=== PATIENT | male | born 1985 | race Two or more races ===

== ENCOUNTER 2023-04-08 17:40 | Inpatient (IN) | payer OTHER ==
[~2023-04-08] VITALS: Ht 182.9 cm; Wt 93.3 kg
[2023-04-08] MEDS ORDERED: NAP500T PO (21:45)
[2023-04-08] MEDS ORDERED: DULO60CA41 PO (21:59)
[2023-04-08 22:00] VITALS: BP 156/114; PULSE 78; RESP 20; TEMP 96.7; O2SAT 97
[2023-04-08] MEDS ORDERED: MORPHINE SULFATE INJ 2 MG/ml SYRG IV PRN ×2 (23:00→23:30)
[2023-04-08] MEDS ORDERED: ONDANSETRON HCL 4 MG/2 ML VIAL IV PRN (23:00)
[2023-04-08] MEDS ORDERED: IBUPROFEN 600 MG TAB PO PRN (23:30)
[2023-04-08] MEDS ORDERED: SODIUM CHLORIDE 0.9% 1,000 ML IV SCH (23:30)
[2023-04-08] MEDS ORDERED: NITROGLYCERIN 0.4 MG SL TAB SL PRN (23:30)
[2023-04-09] VITALS (7 sets, daily range): BP systolic 127–161; BP diastolic 94–110; PULSE 91–110; RESP 17–21; TEMP 98–98.5; O2SAT 92–98
[2023-04-09 01:19] LABS: Basophils # (auto) 0 10 ^3/uL (0-0.2); Eosinophils # (auto) 0 10 ^3/uL (0-0.8); Lymphocytes # (auto) 0.5 10 ^3/uL (0.4-5.4)
[2023-04-09 01:21] LABS: Basophils % (auto) 0.1 % (0.0-2.0); Lymphocytes % (auto) 2.1 % (10.0-50.0); Mean Corpuscular Hemoglobin 32.3 pg (28.0-32.0); Mean Corpuscular Volume 95.1 fL (80.0-100.0); Monocytes # (auto) 1.1 10 ^3/uL (0-1.3); Monocytes % (auto) 5.1 % (0.0-12.0); Neutrophils % (auto) 92.7 % (37.0-80.0); Nucleated Red Blood Cells % 0.1 %; Red Blood Cells 5.58 10^6/uL (4.5-5.90); Red Cell Distribution Width 14.1 % (11.8-14.3); White Blood Cell 21.5 10^3/uL (4.4-10.8)
[2023-04-09 01:22] LABS: Alanine Aminotransferase 96 U/L (7-40); Alkaline Phosphatase 70 U/L (46-116); Anion Gap 13 (5-15); Calcium 8.8 mg/dL (8.7-10.4); Carbon Dioxide 24 mmol/L (20-30); Chloride 96 mmol/L (98-107); Glucose 190 mg/dL (74-106); Lipase 573 U/L (12-53); Potassium 3.8 mmol/L (3.5-5.1); Sodium 133 mmol/L (136-145)
[2023-04-09 01:23] LABS: Albumin 4.7 g/dL (3.2-4.8); Aspartate Aminotransferase 118 U/L (13-40); BUN/Creatinine Ratio 11.2 (10.0-20.0); Bilirubin, Total 1.7 mg/dL (0.2-1.0); Blood Urea Nitrogen 10 mg/dL (9-23); Total Protein 7.5 g/dL (5.7-8.2)
[2023-04-09] MEDS ORDERED: cefTRIAXone 1GM/50ML D5W 50 ML IV ONE (02:15)
[2023-04-09 02:43] LABS: Lactic Acid w/Reflex 2.8 mmol/L (0.4-2.0)
[2023-04-09] MEDS: HYDROmorphone HCL 2 MG/ML VL/or syr IV PRN ×6 (03:08→21:07)
[2023-04-09] MEDS ORDERED: metroNIDAZOLE 500MG/100ML 100 ML IV SCH (06:00)
[2023-04-09 06:03] LABS: Basophils # (auto) 0 10 ^3/uL (0-0.2); Basophils % (auto) 0.1 % (0.0-2.0); Eosinophils # (auto) 0 10 ^3/uL (0-0.8); Hematocrit 50.2 % (41.0-53.0); Hemoglobin 17.3 g/dL (13.5-17.5); Lymphocytes # (auto) 0.7 10 ^3/uL (0.4-5.4); Lymphocytes % (auto) 3.4 % (10.0-50.0); Mean Corpuscular Hemoglobin 32.5 pg (28.0-32.0); Mean Corpuscular Hgb Conc. 34.5 g/dL (32.0-36.0); Mean Corpuscular Volume 94.4 fL (80.0-100.0); Monocytes # (auto) 1.3 10 ^3/uL (0-1.3); Neutrophils # (auto) 18.8 10 ^3/uL (1.6-8.6); Neutrophils % (auto) 90.5 % (37.0-80.0); Nucleated Red Blood Cells % 0.1 %; Red Blood Cells 5.32 10^6/uL (4.5-5.90); Red Cell Distribution Width 14.2 % (11.8-14.3); White Blood Cell 20.8 10^3/uL (4.4-10.8)
[2023-04-09 06:18] LABS: Alanine Aminotransferase 91 U/L (7-40); Albumin 4.7 g/dL (3.2-4.8); Alkaline Phosphatase 70 U/L (46-116); Anion Gap 11 (5-15); Aspartate Aminotransferase 97 U/L (13-40); BUN/Creatinine Ratio 11.4 (10.0-20.0); Blood Urea Nitrogen 9 mg/dL (9-23); Calcium 9.2 mg/dL (8.5-10.1); Carbon Dioxide 25 mmol/L (20-30); Chloride 97 mmol/L (98-107); Glucose 184 mg/dL (74-106); Sodium 133 mmol/L (136-145)
[2023-04-09 06:19] LABS: Bilirubin, Total 1.1 mg/dL (0.2-1.0); Total Protein 7.3 g/dL (5.7-8.2)
[2023-04-09] MEDS ORDERED: cefTRIAXone 1GM/50ML D5W 50 ML IV SCH (09:00)
[2023-04-09] MEDS ORDERED: LACTATED RINGER'S 1,000 ML IV SCH (09:15)
[2023-04-09] MEDS: ONDANSETRON HCL 4 MG/2 ML VIAL IV PRN ×3 (09:58→18:36)
[2023-04-09 10:33] LABS: INR 1.06 (0.9-1.15); Partial Thromboplastin Time 28.3 SEC (24.5-34.5); Prothrombin Time 11.1 sec (9.3-11.8)
[2023-04-09 10:35] LABS: Triglycerides 109 mg/dL (< 150)
[2023-04-09 10:36] LABS: LDL Cholesterol 112 mg/dL (< 100)
[2023-04-09 10:37] LABS: Cholesterol 197 mg/dL (< 200); HDL Cholesterol 58 mg/dL (40-59)
[2023-04-09 10:50] LABS: Magnesium 1.7 mg/dL (1.6-2.6)
[2023-04-09 11:14] LABS: Amylase 159 U/L (30-118); Blood Alcohol < 3.0 mg/dL (<10)
[2023-04-09] MEDS: EMPAGLIFLOZIN 10 MG TAB PO SCH (11:27)
[2023-04-09] MEDS: SPIRONOLACTONE 25 MG TAB PO SCH (11:27)
[2023-04-09] MEDS: CARVEDILOL 3.125 MG TAB PO SCH ×2 (11:27→21:06)
[2023-04-09] MEDS: SACUBITRIL-VALSARTAN 24mg/26mg TAB PO SCH ×2 (11:27→21:06)
[2023-04-09] MEDS ORDERED: METOPROLOL TARTRATE 1MG/1ML-5ML VIAL IV PRN (12:15)
[2023-04-09] MEDS ORDERED: METOPROLOL TARTRATE 1MG/1ML-5ML VIAL IV ONE (12:15)
[2023-04-09 12:46] LABS: Urine Bacteria NONE SEEN /hpf (None Seen); Urine Blood Negative /uL (Negative); Urine Clarity HAZY (Clear); Urine Color Yellow (Yellow); Urine Hyaline Cast FEW /lpf (0 - 2); Urine Mucus FEW (None Seen); Urine Protein, UAD 1+ (Negative); Urine WBC 5 /hpf (0 - 3)
[2023-04-09 12:56] LABS: Amphetamine Screen, Urine Neg (NEGATIVE); Barbiturate Scree,Urine Pos (NEGATIVE); Benzodiazephine Screen, Urine Neg (NEGATIVE); Cannabinoid Screen, Urine Neg (NEGATIVE); Cocaine Screen, Urine Neg (NEGATIVE); Opiate Scree,Urine Pos (NEGATIVE); Phencyclidine Screen, Urine Neg (NEGATIVE)
[2023-04-09] MEDS: LACTATED RINGER'S 1,000 ML IV SCH (13:00)
[2023-04-09] MEDS: MEROPENEM 1GM IVPB 100 ML IV SCH ×2 (14:48→21:07)
[2023-04-09] MEDS ORDERED: MAGNESIUM SULFATE 1GM/100ML 100 ML IV ONE (16:00)
[2023-04-09] MEDS ORDERED: PROP60CA34 PO (18:51)
[2023-04-09] MEDS ORDERED: BUTA-280 PO (18:51)
[2023-04-09] MEDS ORDERED: AMIT10TA12 PO (18:51)
[2023-04-09] MEDS ORDERED: TIZA4CAP PO (18:51)
[2023-04-09] MEDS: FAMOTIDINE (10MG/ML) 2ML VL IV SCH (21:07)
[2023-04-10] VITALS (7 sets, daily range): BP systolic 112–135; BP diastolic 79–86; PULSE 85–100; RESP 18–20; TEMP 97.9–98; O2SAT 94–98
[2023-04-10] MEDS: HYDROmorphone HCL 2 MG/ML VL/or syr IV PRN ×7 (00:25→21:50)
[2023-04-10] MEDS: LACTATED RINGER'S 1,000 ML IV SCH (03:36)
[2023-04-10] MEDS: MEROPENEM 1GM IVPB 100 ML IV SCH ×3 (06:32→21:51)
[2023-04-10] MEDS: EMPAGLIFLOZIN 10 MG TAB PO SCH (06:32)
[2023-04-10 06:35] LABS: Chloride 94 mmol/L (98-107); Potassium 3.7 mmol/L (3.5-5.1); Sodium 132 mmol/L (136-145)
[2023-04-10 06:36] LABS: Anion Gap 10 (5-15); Calcium 8.6 mg/dL (8.7-10.4); Carbon Dioxide 28 mmol/L (20-30)
[2023-04-10 06:41] LABS: BUN/Creatinine Ratio 8.1 (10.0-20.0); Blood Urea Nitrogen 6 mg/dL (9-23); Glucose 90 mg/dL (74-106)
[2023-04-10 06:42] LABS: Magnesium 2.2 mg/dL (1.6-2.6)
[2023-04-10 06:44] LABS: Phosphorus 1.7 mg/dL (2.4-5.1)
[2023-04-10] MEDS: SACUBITRIL-VALSARTAN 24mg/26mg TAB PO SCH ×2 (10:00→21:51)
[2023-04-10] MEDS ORDERED: SODIUM CHLORIDE LOCK 10 ML ONE (10:08)
[2023-04-10] MEDS ORDERED: LIDOCAINE VISCOUS 2% 15ML UD ONE (10:08)
[2023-04-10] MEDS ORDERED: MIDAZOLAM HCL 5 MG/ML-1ML VIAL ONE (10:08)
[2023-04-10] MEDS ORDERED: fentaNYL CITRATE 100 MCG/2 ML VL ONE (10:09)
[2023-04-10] MEDS ORDERED: diphenhdrAMINE HCL 50 MG/1 ML VL ONE (10:09)
[2023-04-10] MEDS: FAMOTIDINE (10MG/ML) 2ML VL IV SCH ×2 (10:18→21:49)
[2023-04-10] MEDS: SPIRONOLACTONE 25 MG TAB PO SCH (10:20)
[2023-04-10] MEDS: CARVEDILOL 3.125 MG TAB PO SCH ×2 (10:20→21:51)
[2023-04-10] MEDS ORDERED: MAGNESIUM OXIDE 400 MG TAB PO ONE (11:00)
[2023-04-10] MEDS ORDERED: SODIUM PHOSPHATES 24 MEQ in SODIUM CHL 0.9% 100 ML IV ONE (11:00)
[2023-04-10] MEDS ORDERED: AMIODARONE HCL 200 MG TAB PO ONE (17:15)
[2023-04-10] MEDS: APIXABAN 5 MG TAB PO SCH (21:51)
[2023-04-11] VITALS (7 sets, daily range): BP systolic 121–145; BP diastolic 77–102; PULSE 77–83; RESP 18–21; TEMP 97.5–98.9; O2SAT 95–96
[2023-04-11] MEDS: HYDROmorphone HCL 2 MG/ML VL/or syr IV PRN ×5 (04:11→21:51)
[2023-04-11] MEDS: MEROPENEM 1GM IVPB 100 ML IV SCH ×3 (05:44→21:49)
[2023-04-11] MEDS: AMIODARONE HCL 200 MG TAB PO SCH ×2 (05:45→17:56)
[2023-04-11] MEDS: EMPAGLIFLOZIN 10 MG TAB PO SCH (06:38)
[2023-04-11 07:28] LABS: Alanine Aminotransferase 39 U/L (7-40); Albumin 3.9 g/dL (3.2-4.8); Alkaline Phosphatase 78 U/L (46-116); Anion Gap 10 (5-15); Aspartate Aminotransferase 49 U/L (13-40); Blood Urea Nitrogen 6 mg/dL (9-23); Calcium 8.5 mg/dL (8.7-10.4); Carbon Dioxide 28 mmol/L (20-30); Chloride 93 mmol/L (98-107); Glucose 105 mg/dL (74-106); Lipase 84 U/L (12-53); Potassium 2.9 mmol/L (3.5-5.1); Sodium 131 mmol/L (136-145); Total Protein 6.2 g/dL (5.7-8.2)
[2023-04-11 07:32] LABS: Basophils # (auto) 0 10 ^3/uL (0-0.2); Basophils % (auto) 0.5 % (0.0-2.0); Eosinophils # (auto) 0.1 10 ^3/uL (0-0.8); Eosinophils % (auto) 0.6 % (0.0-7.0); Hematocrit 37.9 % (41.0-53.0); Hemoglobin 13.2 g/dL (13.5-17.5); Lymphocytes # (auto) 1.3 10 ^3/uL (0.4-5.4); Lymphocytes % (auto) 13.1 % (10.0-50.0); Mean Corpuscular Hemoglobin 33.4 pg (28.0-32.0); Mean Corpuscular Hgb Conc. 34.8 g/dL (32.0-36.0); Mean Corpuscular Volume 95.7 fL (80.0-100.0); Monocytes # (auto) 1.2 10 ^3/uL (0-1.3); Neutrophils % (auto) 72.8 % (37.0-80.0); Red Blood Cells 3.96 10^6/uL (4.5-5.90); Red Cell Distribution Width 13.8 % (11.8-14.3); White Blood Cell 9.6 10^3/uL (4.4-10.8)
[2023-04-11] MEDS: SPIRONOLACTONE 25 MG TAB PO SCH (08:47)
[2023-04-11] MEDS: MAGNESIUM OXIDE 400 MG TAB PO SCH ×2 (08:47→21:49)
[2023-04-11] MEDS: CARVEDILOL 3.125 MG TAB PO SCH ×2 (08:47→21:51)
[2023-04-11] MEDS: APIXABAN 5 MG TAB PO SCH ×2 (08:47→21:49)
[2023-04-11] MEDS: FAMOTIDINE (10MG/ML) 2ML VL IV SCH ×2 (08:48→21:52)
[2023-04-11] MEDS: SACUBITRIL-VALSARTAN 24mg/26mg TAB PO SCH ×2 (08:49→21:49)
[2023-04-11 09:56] LABS: Hepatitis B Core Total AB Negative (Negative)
[2023-04-11] MEDS ORDERED: MAGNESIUM OXIDE 400 MG TAB PO SCH (10:00)
[2023-04-11 11:22] LABS: Hepatitis A Total Antibody Positive (Negative); Hepatitis B Surface Antibody Positive (Negative)
[2023-04-11 11:23] LABS: Hepatitis B Surface Antigen Negative (Negative); Hepatitis C Antibody Negative (Negative)
[2023-04-11] MEDS ORDERED: POTASSIUM CHL 20 Meq TABLET PO ONE (12:00)
[2023-04-11] MEDS ORDERED: POTASSIUM CHLORIDE 40 MEQ, LIDOCAINE 1% (LOCAL ANESTH.) 4 ML in SODIUM CHL 0.9% 250 ML IV ONE (12:00)
[2023-04-11] MEDS ORDERED: POTASSIUM CHLORIDE 80 MEQ, LIDOCAINE 1% (LOCAL ANESTH.) 6 ML in SODIUM CHL 0.9% 500 ML IV ONE (14:15)
[2023-04-12] VITALS (7 sets, daily range): BP systolic 127–137; BP diastolic 81–94; PULSE 67–113; RESP 16–18; TEMP 36.8; O2SAT 93–98
[2023-04-12] MEDS: HYDROmorphone HCL 2 MG/ML VL/or syr IV PRN ×3 (01:58→09:11)
[2023-04-12] MEDS: MEROPENEM 1GM IVPB 100 ML IV SCH (05:13)
[2023-04-12] MEDS: EMPAGLIFLOZIN 10 MG TAB PO SCH (05:14)
[2023-04-12] MEDS: AMIODARONE HCL 200 MG TAB PO SCH ×2 (05:14→18:45)
[2023-04-12 06:25] LABS: Chloride 99 mmol/L (98-107); Potassium 3.5 mmol/L (3.5-5.1); Sodium 133 mmol/L (136-145)
[2023-04-12 06:26] LABS: Anion Gap 6 (5-15); Calcium 8.9 mg/dL (8.7-10.4); Carbon Dioxide 28 mmol/L (20-30)
[2023-04-12 06:31] LABS: BUN/Creatinine Ratio 9.6 (10.0-20.0); Blood Urea Nitrogen 7 mg/dL (9-23); Glucose 129 mg/dL (74-106); Magnesium 1.9 mg/dL (1.6-2.6)
[2023-04-12 06:33] LABS: Phosphorus 2.6 mg/dL (2.4-5.1)
[2023-04-12] MEDS: SACUBITRIL-VALSARTAN 24mg/26mg TAB PO SCH ×2 (09:11→22:03)
[2023-04-12] MEDS: MAGNESIUM OXIDE 400 MG TAB PO SCH ×2 (09:12→22:04)
[2023-04-12] MEDS: SPIRONOLACTONE 25 MG TAB PO SCH (09:12)
[2023-04-12] MEDS: APIXABAN 5 MG TAB PO SCH ×2 (09:12→22:04)
[2023-04-12] MEDS: CARVEDILOL 3.125 MG TAB PO SCH ×2 (09:13→22:04)
[2023-04-12] MEDS: FAMOTIDINE (10MG/ML) 2ML VL IV SCH ×2 (09:13→22:03)
[2023-04-12] MEDS ORDERED: HYDROcodone-ACET 10/325MG TAB PO PRN (12:00)
[2023-04-12] MEDS ORDERED: HYDROcodone-ACET 10/325MG TAB ONE ×2 (13:56→22:33)
[2023-04-12] MEDS: HYDROcodone-ACET 10/325MG TAB PO PRN ×2 (14:11→22:36)
[2023-04-13] MEDS ORDERED: HYDROcodone-ACET 10/325MG TAB ONE (04:20)
[2023-04-13] MEDS: HYDROcodone-ACET 10/325MG TAB PO PRN (04:21)
[2023-04-13 05:00] VITALS: BP 136/103; PULSE 78; RESP 17; TEMP 97.9; O2SAT 98
[2023-04-13] MEDS: AMIODARONE HCL 200 MG TAB PO SCH (06:00)
[2023-04-13] MEDS: EMPAGLIFLOZIN 10 MG TAB PO SCH (07:00)
[2023-04-13 09:00] VITALS: BP 130/86; PULSE 69; RESP 18; TEMP 97.6; O2SAT 99
[2023-04-13] MEDS ORDERED: SPIR25TA PO (09:28)
[2023-04-13] MEDS ORDERED: SACU1TAB PO (09:28)
[2023-04-13] MEDS ORDERED: AMIO200T33 PO (09:28)
[2023-04-13] MEDS ORDERED: APIX5TAB PO (09:28)
[2023-04-13] MEDS ORDERED: CARV6.2551 PO (09:28)
[2023-04-13] MEDS ORDERED: EMPA1TAB PO (09:28)
[2023-04-13] MEDS ORDERED: HYDR-4798 PO ×2 (09:28)
[2023-04-13] MEDS: FAMOTIDINE (10MG/ML) 2ML VL IV SCH (10:00)
[2023-04-13] MEDS ORDERED: HYDR-4902 PO (10:14)
[2023-04-13] MEDS: SACUBITRIL-VALSARTAN 24mg/26mg TAB PO SCH (11:03)
[2023-04-13] MEDS: CARVEDILOL 3.125 MG TAB PO SCH (11:03)
[2023-04-13] MEDS: SPIRONOLACTONE 25 MG TAB PO SCH (11:03)
[2023-04-13] MEDS: APIXABAN 5 MG TAB PO SCH (11:04)
[2023-04-13] MEDS: MAGNESIUM OXIDE 400 MG TAB PO SCH (11:04)
[2023-04-13 11:23] VITALS: BP 130/86; PULSE 69; RESP 18; TEMP 97.6; O2SAT 99
== END 2023-04-13 12:30 | disposition home or self-care (01) | DRG 871 ==
LOC: UNDOADMIN 21:36 → TELE-CENTR 21:36 → CENTRAL 23:35 → TELE-CENTR 04-09 06:21
PROVIDERS: ADMIT Internal Medicine; ATTEND Internal Medicine
DX: A41.9 Sepsis, unspecified organism (principal); K85.90 Acute pancreatitis without necrosis or infection, unspecified; I47.10 Supraventricular tachycardia, unspecified; I50.22 Chronic systolic (congestive) heart failure; I42.8 Other cardiomyopathies; I11.0 Hypertensive heart disease with heart failure; N20.0 Calculus of kidney; I48.0 Paroxysmal atrial fibrillation; K21.9 Gastro-esophageal reflux disease without esophagitis; R73.9 Hyperglycemia, unspecified; E87.8 Other disorders of electrolyte and fluid balance, not elsewhere classified; I49.9 Cardiac arrhythmia, unspecified; E78.5 Hyperlipidemia, unspecified
CPT/HCPCS: 36415; 71045; 76705; 80048; 80053; 80061; 80307; 80320; 81001; 82150; 83036; 83605; 83690; 83735; 83880; 84100; 84439; 84443; 85025; 85610; 85730; 86704; 86706; 86708; 86803; 87340; 93005; 93306; G0378; J2001; J2185; J2250; J2405; J3490